=== PATIENT | female | born 1975 | race Caucasian/White ===

== ENCOUNTER 2016-12-07 11:12 | Emergency (ER) | payer OTHER ==
--- NOTE | 2016-12-07 13:46 | ED CLINICAL REPORT ---
Clinical Report - Physicians/Mid Levels [facility] [address] [place] [address] 12/07/2016 11:12 Patient: LILY PALACIOS I Time Seen: 12:43; initial patient contact. Arrived- By private vehicle. Historian- patient. HISTORY OF PRESENT ILLNESS Chief Complaint: DENTAL PAIN. This started today and is still present (persistent). It was abrupt in onset. Pain described as moderate. No sore throat, mouth sores, nasal discharge or congestion or swollen jaw. No jaw pain. She has had toothache, swelling of the face and facial pain. Similar symptoms previously: Twice. Recent medical care: The patient was seen recently in a clinic (sent by dentist here). REVIEW OF SYSTEMS No fever, difficulty breathing, nausea, headache or vomiting. All systems otherwise negative, except as recorded above. PAST HISTORY Negative. SURGERY HX: Right and left carpal tunnel surgery. Tonsillectomy. Tubal ligation. Problems: no known problems. Medications: Amoxicillin course finished on Monday. Clindamycin HCl Oral 300 mg TID. Allergies: No Known Drug Allergy. SOCIAL HISTORY Current every day smoker. History of drug use: marijuana. No alcohol use. ADDITIONAL NOTES The nursing notes have been reviewed with agreement regarding the chief complaint, PMH and patient medications and allergies. PHYSICAL EXAM Vital Signs: 12/07/2016 11:20 BP: 137/88. HR: 88. RR: 18. O2 saturation: 97%. Temp: 98.2 F. Pain level now: 8/10. Have been reviewed as normal. Appearance: Alert. She appears in pain. Head: No facial erythema. Left cheek: moderate tenderness and mild swelling. No mandibular swelling or maxillary swelling. ENT: Moderate, extensive dental decay with gingival tenderness and swelling (upper left first premolar and second premolar). Dental tenderness. Pharynx normal. Neck: No adenopathy. CVS: Normal heart rate and rhythm. Heart sounds normal. Respiratory: No respiratory distress. Breath sounds normal. Skin: Normal skin color. No rash. Neuro: Oriented X 3. PROGRESS AND PROCEDURES Course of Care: Toradol 60mg IM given. 12/07/2016 11:20 BP: 137/88. HR: 88. RR: 18. O2 saturation: 97%. Temp: 98.2 F. Pain level now: 8/10. Vital Signs: have been reviewed as normal. Symptoms much better. Disposition: Discharged home in good condition. Condition: good. CLINICAL IMPRESSION Periapical dental abscess. No sinus tract. INSTRUCTIONS Your Current Medications: CONTINUE TAKING THE FOLLOWING MEDICATIONS: Amoxicillin course finished on Monday*. Clindamycin HCl Oral : 300 mg TID. Prescription Medications: Hydrocodone/APAP 7.5mg / 325mg: take 1 orally every 6 hours as needed for pain. Dispense fifteen (15). No refill. Follow-up: Follow up with your doctor tomorrow. Call for an appointment. Screening today revealed the patient's blood pressure to be in the pre-hypertensive range. The patient should follow up with a primary care provider for blood pressure management. (Electronically signed by Eugenio Bowman Dr. 12/08/2016 22:21)
--- NOTE | 2016-12-07 13:46 | ED NURSING NOTES ---
Clinical Report - Nurses [facility] [address] [place] [address] 12/07/2016 11:12 Patient: LILY PALACIOS I TRIAGE Triage time 11:21. Acuity: LEVEL 4. Chief Complaint: LEFT LOWER TOOTHACHE and CHIPPED TOOTH, SWELLING OF JAW / FACE and (sent by dentist, pt "might need IV antibiotics"). Alert. --11:27 Lizbeth Beck R.N. 11:20 12/07/16. BP: 137/88. HR: 88. RR: 18. O2 saturation: 97%. Temp: 98.2 F. Pain level now: 07/06. --11:27 Lizbeth Beck R.N. Weight: 77.1 kg stated. Height/Length: 64 inches Per Patient. BMI: 29.2. --11:21 Lizbeth Beck R.N. Medications Clindamycin HCl Oral 300 mg TID. --11:23 Lizbeth Beck R.N. Amoxicillin course finished on Monday. --11:24 Lizbeth Beck R.N. Allergies No Known Drug Allergy. --11:24 Lizbeth Beck R.N. History Arrived by private vehicle. Historian: patient. Unaccompanied. Primary physician (Dr. Downey, was seen by Dr. Samayoa today at [facility]). This started just prior to arrival and today. ( was forced to chew on left side, as pt had 2 teeth extracted on right side). 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 (course of Amoxicillin). PAST MEDICAL HX: Negative. Immunizations: up-to-date. Last normal menstrual period was 2 weeks ago. Denies current . SURGERY HX: Right and left carpal tunnel surgery. Tonsillectomy. Tubal ligation. SOCIAL HX: Heavy tobacco smoker (cigarette)- less than 1 pack per day. Occasional alcohol use. History of drug use: marijuana. The patient was exposed to MRSA. FALL RISK ASSESSMENT: Fall risk assessment completed. No fall risk identified. LEARNING NEEDS ASSESSMENT: The learning needs assessment revealed no barriers. --11: Lizbeth Beck R.N. Assessment The patient states feels the same. --: Lizbeth Beck R.N. Interventions ID band on patient. To room. --: Lizbeth Beck R.N. PHYSICAL ASSESSMENT 11:28 12/07/16. HEENT: Facial swelling present left cheek and lips area. --11:28 Lizbeth Beck R.N. NURSING PROGRESS NOTES 11:12/07/16. Patient identifiers checked. Call light placed in reach. Bed placed in lowest position. Patient ready for evaluation- chart flagged. --11:28 Lizbeth Beck R.N. Care transferred and report given (to Fernando). --12:15 Lizbeth Beck R.N. 13:22 12/07/2016 Toradol (Ketorolac Tromethamine) IM 60 mg given. Given in the right deltoid. Allergies verified and confirmed 5 rights. --13:22 Fernando Tolliver R.N. DISPOSITION / DISCHARGE Condition at departure: improved. Discharge instructions provided and reviewed with the patient. Reviewed medication(s) side effects, precautions, dosing and course information. Prescription(s) given to the patient. Patient verbalized understanding. Written instructions provided in Bahamian. The patient was discharged home and accompanied by field representative/health education. She left the Emergency Department ambulatory and via private vehicle. Time Clerk driving. --14:03 Fernando Tolliver R.N. 14:02 12/07/16. BP: 144/91. HR: 71. RR: 16. O2 saturation: 99%. Temp: 98.5 F (oral). Pain level now: 0/10. --14:03 Fernando Tolliver R.N. Departure time: 1403 PM. --14:03 Fernando Tolliver R.N. Locked/Released at 12/07/2016 14:04 by Fernando Tolliver R.N.
--- NOTE | 2016-12-07 13:46 | ED NURSING NOTES ---
Clinical Report - Nurses [facility] [address] [place] [address] 12/07/2016 11:12 Patient: LILY PALACIOS I TRIAGE Triage time 11:21. Acuity: LEVEL 4. Chief Complaint: LEFT LOWER TOOTHACHE and CHIPPED TOOTH, SWELLING OF JAW / FACE and (sent by dentist, pt "might need IV antibiotics"). Alert. --11:27 Lizbeth Beck R.N. 11:20 12/07/16. BP: 137/88. HR: 88. RR: 18. O2 saturation: 97%. Temp: 98.2 F. Pain level now: 07/06. --11:27 Lizbeth Beck R.N. Weight: 77.1 kg stated. Height/Length: 64 inches Per Patient. BMI: 29.2. --11:21 Lizbeth Beck R.N. Medications Clindamycin HCl Oral 300 mg TID. --11:23 Lizbeth Beck R.N. Amoxicillin course finished on Monday. --11:24 Lizbeth Beck R.N. Allergies No Known Drug Allergy. --11:24 Lizbeth Beck R.N. History Arrived by private vehicle. Historian: patient. Unaccompanied. Primary physician (Dr. Downey, was seen by Dr. Samayoa today at [facility]). This started just prior to arrival and today. ( was forced to chew on left side, as pt had 2 teeth extracted on right side). 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 (course of Amoxicillin). PAST MEDICAL HX: Negative. Immunizations: up-to-date. Last normal menstrual period was 2 weeks ago. Denies current . SURGERY HX: Right and left carpal tunnel surgery. Tonsillectomy. Tubal ligation. SOCIAL HX: Heavy tobacco smoker (cigarette)- less than 1 pack per day. Occasional alcohol use. History of drug use: marijuana. The patient was exposed to MRSA. FALL RISK ASSESSMENT: Fall risk assessment completed. No fall risk identified. LEARNING NEEDS ASSESSMENT: The learning needs assessment revealed no barriers. --11: Lizbeth Beck R.N. Assessment The patient states feels the same. --: Lizbeth Beck R.N. Interventions ID band on patient. To room. --: Lizbeth Beck R.N. PHYSICAL ASSESSMENT 11:28 12/07/16. HEENT: Facial swelling present left cheek and lips area. --11:28 Lizbeth Beck R.N. NURSING PROGRESS NOTES 11:12/07/16. Patient identifiers checked. Call light placed in reach. Bed placed in lowest position. Patient ready for evaluation- chart flagged. --11:28 Lizbeth Beck R.N. Care transferred and report given (to Fernando). --12:15 Lizbeth Beck R.N. 13:22 12/07/2016 Toradol (Ketorolac Tromethamine) IM 60 mg given. Given in the right deltoid. Allergies verified and confirmed 5 rights. --13:22 Fernando Tolliver R.N. DISPOSITION / DISCHARGE Condition at departure: improved. Discharge instructions provided and reviewed with the patient. Reviewed medication(s) side effects, precautions, dosing and course information. Prescription(s) given to the patient. Patient verbalized understanding. Written instructions provided in Yemeni. The patient was discharged home and accompanied by jerker. She left the Emergency Department ambulatory and via private vehicle. Psychodramatist driving. --14:03 Fernando Tolliver R.N. 14:02 12/07/16. BP: 144/91. HR: 71. RR: 16. O2 saturation: 99%. Temp: 98.5 F (oral). Pain level now: 0/10. --14:03 Fernando Tolliver R.N. Departure time: 1403 PM. --14:03 Fernando Tolliver R.N. Locked/Released at 12/07/2016 14:04 by Fernando Tolliver R.N.
--- NOTE | 2016-12-07 13:46 | ED CLINICAL REPORT ---
Clinical Report - Physicians/Mid Levels [facility] [address] [place] [address] 12/07/2016 11:12 Patient: LILY PALACIOS I Time Seen: 12:43; initial patient contact. Arrived- By private vehicle. Historian- patient. HISTORY OF PRESENT ILLNESS Chief Complaint: DENTAL PAIN. This started today and is still present (persistent). It was abrupt in onset. Pain described as moderate. No sore throat, mouth sores, nasal discharge or congestion or swollen jaw. No jaw pain. She has had toothache, swelling of the face and facial pain. Similar symptoms previously: Twice. Recent medical care: The patient was seen recently in a clinic (sent by dentist here). REVIEW OF SYSTEMS No fever, difficulty breathing, nausea, headache or vomiting. All systems otherwise negative, except as recorded above. PAST HISTORY Negative. SURGERY HX: Right and left carpal tunnel surgery. Tonsillectomy. Tubal ligation. Problems: no known problems. Medications: Amoxicillin course finished on Monday. Clindamycin HCl Oral 300 mg TID. Allergies: No Known Drug Allergy. SOCIAL HISTORY Current every day smoker. History of drug use: marijuana. No alcohol use. ADDITIONAL NOTES The nursing notes have been reviewed with agreement regarding the chief complaint, PMH and patient medications and allergies. PHYSICAL EXAM Vital Signs: 12/07/2016 11:20 BP: 137/88. HR: 88. RR: 18. O2 saturation: 97%. Temp: 98.2 F. Pain level now: 8/10. Have been reviewed as normal. Appearance: Alert. She appears in pain. Head: No facial erythema. Left cheek: moderate tenderness and mild swelling. No mandibular swelling or maxillary swelling. ENT: Moderate, extensive dental decay with gingival tenderness and swelling (upper left first premolar and second premolar). Dental tenderness. Pharynx normal. Neck: No adenopathy. CVS: Normal heart rate and rhythm. Heart sounds normal. Respiratory: No respiratory distress. Breath sounds normal. Skin: Normal skin color. No rash. Neuro: Oriented X 3. PROGRESS AND PROCEDURES Course of Care: Toradol 60mg IM given. 12/07/2016 11:20 BP: 137/88. HR: 88. RR: 18. O2 saturation: 97%. Temp: 98.2 F. Pain level now: 8/10. Vital Signs: have been reviewed as normal. Symptoms much better. Disposition: Discharged home in good condition. Condition: good. CLINICAL IMPRESSION Periapical dental abscess. No sinus tract. INSTRUCTIONS Your Current Medications: CONTINUE TAKING THE FOLLOWING MEDICATIONS: Amoxicillin course finished on Monday*. Clindamycin HCl Oral : 300 mg TID. Prescription Medications: Hydrocodone/APAP 7.5mg / 325mg: take 1 orally every 6 hours as needed for pain. Dispense fifteen (15). No refill. Follow-up: Follow up with your doctor tomorrow. Call for an appointment. Screening today revealed the patient's blood pressure to be in the pre-hypertensive range. The patient should follow up with a primary care provider for blood pressure management. (Electronically signed by Eugenio Bowman Dr. 12/08/2016 22:21)
--- NOTE | 2016-12-07 13:46 | ED ORDER SUMMARY ---
..... Patient: LILY PALACIOS I OrderSheet [facility] VisitID: [id number] [address] [place] [address] 41y, F Registration Date/Time: 12/07/2016 ORDER SHEET Weight: 77.1 kg (stated) Allergies: No Known Drug Allergy GENERAL ORDERS: MEDICATION ORDERS: Toradol IM 60 mg (NOW) (12:56 12/07/2016 Swapna Fink) (13:22 Es Paredes) IV FLUIDS: ORDER SHEET NOTES: [Electronically signed by Fernando Tolliver R.N. (14:04 12/07/2016)] [Electronically signed by Eugenio Bowman Dr. (22:21 12/08/2016)] [Electronically locked/signed by Fernando Tolliver R.N. (14:04 12/07/2016)]
--- NOTE | 2016-12-07 13:46 | ED ORDER SUMMARY ---
..... Patient: LILY PALACIOS I OrderSheet [facility] VisitID: [id number] [address] [place] [address] 41y, F Registration Date/Time: 12/07/2016 ORDER SHEET Weight: 77.1 kg (stated) Allergies: No Known Drug Allergy GENERAL ORDERS: MEDICATION ORDERS: Toradol IM 60 mg (NOW) (12:56 12/07/2016 Swapna Fink) (13:22 Es Paredes) IV FLUIDS: ORDER SHEET NOTES: [Electronically signed by Fernando Tolliver R.N. (14:04 12/07/2016)] [Electronically signed by Eugenio Bowman Dr. (22:21 12/08/2016)] [Electronically locked/signed by Fernando Tolliver R.N. (14:04 12/07/2016)]
--- NOTE | 2016-12-08 22:21 | ED MAR SUMMARY ---
..... Medication Administration Record [facility] [address] [place] [address] Patient: LILY PALACIOS I Visit ID: [id number] 41y, F Weight: 77.1 kg Height/Length: 64 in BMI: 29.2 ALLERGIES: No Known Drug Allergy Given 13:22 12/07/2016 Fernando Tolliver, RTiffanieNTiffanie Medication Administered: TORADOL [IM] (KETOROLAC TROMETHAMINE), Dose: 60 mg IM. Medication Ordered: Toradol IM 60 mg (NOW).
--- NOTE | 2016-12-08 22:21 | ED MED RECONCILIATION SUMMARY ---
Patient: LILY PALACIOS I Medication Reconciliation Report [facility] VisitID: [id number] [address] [place] [address] 41y, F Registration Date/Time: 12/07/2016 Weight: 77.1 kg Height/Length: 64 in. BMI: 29.2 ALLERGIES: No Known Drug Allergy The patient's Home Medications are listed below: CONTINUE TAKING THE FOLLOWING MEDICATIONS: Amoxicillin course finished on Monday Clindamycin HCl Oral 300 mg TID The source(s) of the original Home Medication information: Not obtained. The following Medications were given to the patient in the Emergency Department: Toradol [IM] IM 60 mg, administered: 12/07/2016 1:22:00 PM The following Medications were prescribed to the patient: Hydrocodone/APAP 7.5mg / 325mg: take 1 orally every 6 hours as needed for pain. Dispense fifteen (15). No refill. -- Eugenio Bowman Dr.
--- NOTE | 2016-12-08 22:21 | ED MED RECONCILIATION SUMMARY ---
Patient: LILY PALACIOS I Medication Reconciliation Report [facility] VisitID: [id number] [address] [place] [address] 41y, F Registration Date/Time: 12/07/2016 Weight: 77.1 kg Height/Length: 64 in. BMI: 29.2 ALLERGIES: No Known Drug Allergy The patient's Home Medications are listed below: CONTINUE TAKING THE FOLLOWING MEDICATIONS: Amoxicillin course finished on Monday Clindamycin HCl Oral 300 mg TID The source(s) of the original Home Medication information: Not obtained. The following Medications were given to the patient in the Emergency Department: Toradol [IM] IM 60 mg, administered: 12/07/2016 1:22:00 PM The following Medications were prescribed to the patient: Hydrocodone/APAP 7.5mg / 325mg: take 1 orally every 6 hours as needed for pain. Dispense fifteen (15). No refill. -- Eugenio Bowman Dr.
--- NOTE | 2016-12-08 22:21 | ED MAR SUMMARY ---
..... Medication Administration Record [facility] [address] [place] [address] Patient: LILY PALACIOS I Visit ID: [id number] 41y, F Weight: 77.1 kg Height/Length: 64 in BMI: 29.2 ALLERGIES: No Known Drug Allergy Given 13:22 12/07/2016 Fernando Tolliver, RTiffanieNTiffanie Medication Administered: TORADOL [IM] (KETOROLAC TROMETHAMINE), Dose: 60 mg IM. Medication Ordered: Toradol IM 60 mg (NOW).
--- NOTE | 2016-12-08 22:21 | ED DISCHARGE INSTRUCTIONS ---
Patient: LILY PALACIOS I General Instructions [facility] VisitID: [id number] [place] [address] 41y, F Registration Date/Time: 12/07/2016 Periapical dental abscess. No sinus tract. INSTRUCTIONS Your Current Medications: CONTINUE TAKING THE FOLLOWING MEDICATIONS: Amoxicillin course finished on Monday*. Clindamycin HCl Oral : 300 mg TID. Prescription Medications: Hydrocodone/APAP 7.5mg / 325mg: take 1 orally every 6 hours as needed for pain. Dispense fifteen (15). No refill. Follow-up: Follow up with your doctor tomorrow. Call for an appointment. Screening today revealed the patient's blood pressure to be in the pre-hypertensive range. The patient should follow up with a primary care provider for blood pressure management. ADDITIONAL INFORMATION Dental Abscess A dental abscess is an infection of the tooth socket. It often starts with a crack or cavity in the tooth. A pocket of pus forms between the tooth and the bone. The infection causes pain and swelling of the gum, cheek or jaw. The pain is often made worse by drinking hot or cold fluids, or biting on hard foods. Pain may be felt in the facial sinus or in the ear. A severe infection can interfere with swallowing and breathing. In the emergency department or clinic, you will be started on an antibiotic. However, final treatment requires drainage of the pus. This can be done by removing the tooth or performing a root canal. A root canal is done by an oral surgeon and involves drilling an opening in the tooth to drain the pus. After the infection has healed, a crown is placed over the tooth. Home care The following guidelines will help you care for your abscess at home: Avoid hot and cold foods and liquids since your tooth may be sensitive to temperature changes. If your tooth is chipped or cracked, or if there is a large open cavity, applyoil of cloves(available ohms-ctj-ytnzaxh in drug stores) directly to the tooth to reduce pain. Some pharmacies carry an ooqe-jei-mlhouoz "toothache kit". This contains oil of cloves and a paste, which can be applied over the exposed tooth to decrease sensitivity. Apply an ice pack (ice cubes in a plastic bag, wrapped in a towel) over the injured area for 20 minutes every 12 hours the first day for pain relief. Continue this 34 times a day until the pain and swelling goes away. You may use acetaminophen or ibuprofen to control pain, unless another medicine was prescribed. If you have chronic liver or kidney disease or ever had a stomach ulcer or GI bleeding, talk with your doctor before using these medicines. An antibiotic will be prescribed. Take it as directed until completed, even if you are feeling better sooner. Follow-up care Follow up as directed with a dentist or oral surgeon. Even though your pain may improve with the treatment given today, only a dentist or oral surgeon can provide full treatment for this problem. When to seek medical care Get prompt medical attention or contact your doctor if any of the following occur: Your face or eyelid becomes swollen or red Pain worsens or spreads to the neck Fever over 100.4F (38.0C) Unusual drowsiness; headache or stiff neck; weakness, or fainting Pus drains from the gum or tooth Difficulty talking, swallowing or breathing Unable to open your mouth wide Hydrocodone Bitartrate, Acetaminophen Oral tablet What is this medicine? ACETAMINOPHEN; HYDROCODONE (a set a DEEPAK benny fen; tomas droe KOE done) is a pain reliever. It is used to treat mild to moderate pain. How should I use this medicine? Take this medicine by mouth. Swallow it with a full glass of water. Follow the directions on the prescription label. If the medicine upsets your stomach, take the medicine with food or milk. Do not take more than you are told to take. Talk to your high scaler regarding the use of this medicine in children. This medicine is not approved for use in children. What side effects may I notice from receiving this medicine? Side effects that you should report to your doctor or health care manager cna as soon as possible: allergic reactions like skin rash, itching or hives, swelling of the face, lips, or tongue breathing problems confusion feeling faint or lightheaded, falls stomach pain yellowing of the eyes or skin Side effects that usually do not require medical attention (report to your doctor or health care manager cna if they continue or are bothersome): nausea, vomiting stomach upset What may interact with this medicine? alcohol antihistamines isoniazid medicines for depression, anxiety, or psychotic disturbances medicines for sleep muscle relaxants naltrexone narcotic medicines (opiates) for pain phenobarbital ritonavir tramadol What if I miss a dose? If you miss a dose, take it as soon as you can. If it is almost time for your next dose, take only that dose. Do not take double or extra doses. Where should I keep my medicine? Keep out of the reach of children. This medicine can be abused. Keep your medicine in a safe place to protect it from theft. Do not share this medicine with anyone. Selling or giving away this medicine is dangerous and against the law. Store at room temperature between 15 and 30 degrees C (59 and 86 degrees F). Protect from light. Keep container tightly closed. Throw away any unused medicine after the expiration date. Discard unused medicine and used packaging carefully. Pets and children can be harmed if they find used or lost packages. What should I tell my health care provider before I take this medicine? They need to know if you have any of these conditions: brain tumor Crohn's disease, inflammatory bowel disease, or ulcerative colitis drink more than 3 alcohol-containing drinks per day drug abuse or addiction head injury heart or circulation problems kidney disease or problems going to the bathroom liver disease lung disease, asthma, or breathing problems an unusual or allergic reaction to acetaminophen, hydrocodone, other opioid analgesics, other medicines, foods, dyes, or preservatives or trying to get breast-feeding What should I watch for while using this medicine? Tell your doctor or health care manager cna if your pain does not go away, if it gets worse, or if you have new or a different type of pain. You may develop tolerance to the medicine. Tolerance means that you will need a higher dose of the medicine for pain relief. Tolerance is normal and is expected if you take the medicine for a long time. Do not suddenly stop taking your medicine because you may develop a severe reaction. Your body becomes used to the medicine. This does NOT mean you are addicted. Addiction is a behavior related to getting and using a drug for a non-medical reason. If you have pain, you have a medical reason to take pain medicine. Your doctor will tell you how much medicine to take. If your doctor wants you to stop the medicine, the dose will be slowly lowered over time to avoid any side effects. You may get drowsy or dizzy when you first start taking the medicine or change doses. Do not drive, use machinery, or do anything that may be dangerous until you know how the medicine affects you. Stand or sit up slowly. There are different types of narcotic medicines (opiates) for pain. If you take more than one type at the same time, you may have more side effects. Give your health care provider a list of all medicines you use. Your doctor will tell you how much medicine to take. Do not take more medicine than directed. Call emergency for help if you have problems breathing. The medicine will cause constipation. Try to have a bowel movement at least every 2 to 3 days. If you do not have a bowel movement for 3 days, call your doctor or health care manager cna. Too much acetaminophen can be very dangerous. Do not take Tylenol (acetaminophen) or medicines that contain acetaminophen with this medicine. Many non-prescription medicines contain acetaminophen. Always read the labels carefully. You have been given the following additional information: Tooth Abscess Hydrocodone Bitartrate, Acetaminophen Oral tablet (Electronically signed by Eugenio Bowman Dr. 12/08/2016 22:21)
--- NOTE | 2016-12-08 22:21 | ED DISCHARGE INSTRUCTIONS ---
Patient: LILY PALACIOS I General Instructions [facility] VisitID: [id number] [place] [address] 41y, F Registration Date/Time: 12/07/2016 Periapical dental abscess. No sinus tract. INSTRUCTIONS Your Current Medications: CONTINUE TAKING THE FOLLOWING MEDICATIONS: Amoxicillin course finished on Monday*. Clindamycin HCl Oral : 300 mg TID. Prescription Medications: Hydrocodone/APAP 7.5mg / 325mg: take 1 orally every 6 hours as needed for pain. Dispense fifteen (15). No refill. Follow-up: Follow up with your doctor tomorrow. Call for an appointment. Screening today revealed the patient's blood pressure to be in the pre-hypertensive range. The patient should follow up with a primary care provider for blood pressure management. ADDITIONAL INFORMATION Dental Abscess A dental abscess is an infection of the tooth socket. It often starts with a crack or cavity in the tooth. A pocket of pus forms between the tooth and the bone. The infection causes pain and swelling of the gum, cheek or jaw. The pain is often made worse by drinking hot or cold fluids, or biting on hard foods. Pain may be felt in the facial sinus or in the ear. A severe infection can interfere with swallowing and breathing. In the emergency department or clinic, you will be started on an antibiotic. However, final treatment requires drainage of the pus. This can be done by removing the tooth or performing a root canal. A root canal is done by an oral surgeon and involves drilling an opening in the tooth to drain the pus. After the infection has healed, a crown is placed over the tooth. Home care The following guidelines will help you care for your abscess at home: Avoid hot and cold foods and liquids since your tooth may be sensitive to temperature changes. If your tooth is chipped or cracked, or if there is a large open cavity, applyoil of cloves(available xrcs-sdw-tkvfohu in drug stores) directly to the tooth to reduce pain. Some pharmacies carry an zngl-kgp-sjojzvm "toothache kit". This contains oil of cloves and a paste, which can be applied over the exposed tooth to decrease sensitivity. Apply an ice pack (ice cubes in a plastic bag, wrapped in a towel) over the injured area for 20 minutes every 12 hours the first day for pain relief. Continue this 34 times a day until the pain and swelling goes away. You may use acetaminophen or ibuprofen to control pain, unless another medicine was prescribed. If you have chronic liver or kidney disease or ever had a stomach ulcer or GI bleeding, talk with your doctor before using these medicines. An antibiotic will be prescribed. Take it as directed until completed, even if you are feeling better sooner. Follow-up care Follow up as directed with a dentist or oral surgeon. Even though your pain may improve with the treatment given today, only a dentist or oral surgeon can provide full treatment for this problem. When to seek medical care Get prompt medical attention or contact your doctor if any of the following occur: Your face or eyelid becomes swollen or red Pain worsens or spreads to the neck Fever over 100.4F (38.0C) Unusual drowsiness; headache or stiff neck; weakness, or fainting Pus drains from the gum or tooth Difficulty talking, swallowing or breathing Unable to open your mouth wide Hydrocodone Bitartrate, Acetaminophen Oral tablet What is this medicine? ACETAMINOPHEN; HYDROCODONE (a set a DEEPAK benny fen; tomas droe KOE done) is a pain reliever. It is used to treat mild to moderate pain. How should I use this medicine? Take this medicine by mouth. Swallow it with a full glass of water. Follow the directions on the prescription label. If the medicine upsets your stomach, take the medicine with food or milk. Do not take more than you are told to take. Talk to your import customs clearing agent regarding the use of this medicine in children. This medicine is not approved for use in children. What side effects may I notice from receiving this medicine? Side effects that you should report to your doctor or health group care worker as soon as possible: allergic reactions like skin rash, itching or hives, swelling of the face, lips, or tongue breathing problems confusion feeling faint or lightheaded, falls stomach pain yellowing of the eyes or skin Side effects that usually do not require medical attention (report to your doctor or health group care worker if they continue or are bothersome): nausea, vomiting stomach upset What may interact with this medicine? alcohol antihistamines isoniazid medicines for depression, anxiety, or psychotic disturbances medicines for sleep muscle relaxants naltrexone narcotic medicines (opiates) for pain phenobarbital ritonavir tramadol What if I miss a dose? If you miss a dose, take it as soon as you can. If it is almost time for your next dose, take only that dose. Do not take double or extra doses. Where should I keep my medicine? Keep out of the reach of children. This medicine can be abused. Keep your medicine in a safe place to protect it from theft. Do not share this medicine with anyone. Selling or giving away this medicine is dangerous and against the law. Store at room temperature between 15 and 30 degrees C (59 and 86 degrees F). Protect from light. Keep container tightly closed. Throw away any unused medicine after the expiration date. Discard unused medicine and used packaging carefully. Pets and children can be harmed if they find used or lost packages. What should I tell my health care provider before I take this medicine? They need to know if you have any of these conditions: brain tumor Crohn's disease, inflammatory bowel disease, or ulcerative colitis drink more than 3 alcohol-containing drinks per day drug abuse or addiction head injury heart or circulation problems kidney disease or problems going to the bathroom liver disease lung disease, asthma, or breathing problems an unusual or allergic reaction to acetaminophen, hydrocodone, other opioid analgesics, other medicines, foods, dyes, or preservatives or trying to get breast-feeding What should I watch for while using this medicine? Tell your doctor or health group care worker if your pain does not go away, if it gets worse, or if you have new or a different type of pain. You may develop tolerance to the medicine. Tolerance means that you will need a higher dose of the medicine for pain relief. Tolerance is normal and is expected if you take the medicine for a long time. Do not suddenly stop taking your medicine because you may develop a severe reaction. Your body becomes used to the medicine. This does NOT mean you are addicted. Addiction is a behavior related to getting and using a drug for a non-medical reason. If you have pain, you have a medical reason to take pain medicine. Your doctor will tell you how much medicine to take. If your doctor wants you to stop the medicine, the dose will be slowly lowered over time to avoid any side effects. You may get drowsy or dizzy when you first start taking the medicine or change doses. Do not drive, use machinery, or do anything that may be dangerous until you know how the medicine affects you. Stand or sit up slowly. There are different types of narcotic medicines (opiates) for pain. If you take more than one type at the same time, you may have more side effects. Give your health care provider a list of all medicines you use. Your doctor will tell you how much medicine to take. Do not take more medicine than directed. Call emergency for help if you have problems breathing. The medicine will cause constipation. Try to have a bowel movement at least every 2 to 3 days. If you do not have a bowel movement for 3 days, call your doctor or health group care worker. Too much acetaminophen can be very dangerous. Do not take Tylenol (acetaminophen) or medicines that contain acetaminophen with this medicine. Many non-prescription medicines contain acetaminophen. Always read the labels carefully. You have been given the following additional information: Tooth Abscess Hydrocodone Bitartrate, Acetaminophen Oral tablet (Electronically signed by Eugenio Bowman Dr. 12/08/2016 22:21)
== END 2016-12-07 14:04 | disposition home or self-care (01) ==
LOC: ED SRH 11:12
DX: K04.7 Periapical abscess without sinus (principal); F17.210 Nicotine dependence, cigarettes, uncomplicated

== ENCOUNTER 2017-01-16 17:02 | Outpatient (CLI) | payer OTHER ==
--- NOTE | 2017-01-16 18:08 | DIAGNOSTIC IMAGING REPORT ---
PROCEDURE: US COMPLETE PELVIC W/TRANSVAG INDICATION: PELVIC PAIN TECHNIQUE: Transabdominal and endovaginal tyson scale and color Doppler sonographic images of the female pelvis were obtained. COMPARISON: Pelvic ultrasound 10/18/2016 FINDINGS: TRANSABDOMINAL SCANS: Anteverted uterus measures 7.2 x 4.5 x 5.9 cm. The anterior border is lobulated secondary to an exophytic left anterior fibroid. Myometrium has otherwise normal echotexture. Normal adnexa without suspicious mass. The right ovary is anterior within the pelvis and only seen by transabdominal imaging. It measures 2.7 x 2.5 x 5.9 cm and has a 12-mm follicle. The visible portion of the urinary bladder is normal. Trace free pelvic fluid. TRANSVAGINAL SCANS: The uterus is anteverted in position and has a homogeneous myometrial echotexture. There is a myometrial/subserosal hypoechoic heterogeneous avascular mass measuring 2.9 x 2.4 x 2.2 cm. It does not distort the endometrial stripe. The endometrium is 6.7 mm in thickness. No endometrial fluid collections or suspicious masses. The left ovary measures 3.1 x 1.6 x 1.4 cm and also has a normal follicular echotexture and normal vascularity. No suspicious adnexal masses or free pelvic fluid. IMPRESSION: 1. Single partially exophytic uterine fibroid measuring 2.9 x 2.4 x 2.2 cm. 3 months ago this fibroid measured 2.3 x 1.9 x 1.8 cm 2. Normal ovaries.
== END 2017-01-16 23:00 ==
LOC: US SRH 17:02
DX: D25.9 Leiomyoma of uterus, unspecified (principal)